=== PATIENT | female | born 1985 | race Caucasian/White ===

== ENCOUNTER 2024-03-22 11:24 | Emergency (ER) | payer MEDICARE, MEDICAID | END 2024-03-22 12:11 | disposition home or self-care (01) | LOC: FB.ED 11:24 | DX: L03.111 Cellulitis of right axilla (principal); B37.2 Candidiasis of skin and nail; Z88.6 Allergy status to analgesic agent; Z88.8 Allergy status to other drugs, medicaments and biological substances; Z91.013 Allergy to seafood; Z91.018 Allergy to other foods; Z79.899 Other long term (current) drug therapy | CPT/HCPCS: 99283 ==

== ENCOUNTER 2024-04-25 20:24 | Emergency (ER) | payer MEDICARE, MEDICAID ==
[2024-04-25] MEDS: cefTRIAXone 1 GM Vial IM ONE (21:40)
[2024-04-25] MEDS: Ketorolac 30 MG/ML SDV IM ONE (21:41)
== END 2024-04-25 21:55 | disposition home or self-care (01) ==
LOC: FB.ED 20:24
DX: L02.232 Carbuncle of back [any part, except buttock and flank] (principal); L02.222 Furuncle of back [any part, except buttock and flank]; E66.9 Obesity, unspecified; Z88.6 Allergy status to analgesic agent; Z88.8 Allergy status to other drugs, medicaments and biological substances; Z91.013 Allergy to seafood; Z91.018 Allergy to other foods; Z79.899 Other long term (current) drug therapy; Z68.42 Body mass index [BMI] 45.0-49.9, adult
CPT/HCPCS: 10060; 96372; 99283; J0696; J1885

== ENCOUNTER 2024-05-01 17:59 | Emergency (ER) | payer MEDICARE, MEDICAID ==
[2024-05-01] MEDS: Ketorolac 30 MG/ML SDV IM ONE (18:51)
[2024-05-01] MEDS: cefTRIAXone 1 GM Vial IM ONE (18:52)
== END 2024-05-01 19:05 | disposition home or self-care (01) ==
LOC: FB.ED 17:59
DX: L03.312 Cellulitis of back [any part except buttock and flank] (principal); L02.232 Carbuncle of back [any part, except buttock and flank]; L02.222 Furuncle of back [any part, except buttock and flank]; E66.9 Obesity, unspecified; Z88.6 Allergy status to analgesic agent; Z88.8 Allergy status to other drugs, medicaments and biological substances; Z91.018 Allergy to other foods; Z91.013 Allergy to seafood; Z79.899 Other long term (current) drug therapy; Z68.42 Body mass index [BMI] 45.0-49.9, adult
CPT/HCPCS: 96372; 99282; J0696; J1885